=== PATIENT | male | born 1990 | race Two or more races ===

== ENCOUNTER 2020-05-26 13:33 | Outpatient (CLI) | payer OTHER | END 2020-05-26 14:17 | disposition home or self-care (01) | LOC: OFIC 805 13:33 | PROVIDERS: ATTEND Otolaryngology Otology & Neurotology | DX: J02.8 Acute pharyngitis due to other specified organisms (principal); H69.83 Other specified disorders of Eustachian tube, bilateral; M54.2 Cervicalgia ==